=== PATIENT | female | born 1960 | race American Indian/Alaskan Native ===

== ENCOUNTER 2018-02-01 06:19 | Day surgery (SDC) | payer MEDICARE ==
[2018-02-01] MEDS ORDERED: ECOTRIN PO NR (06:54)
[2018-02-01] MEDS ORDERED: NACL 0.9% 500 ML 500 ML IV SCH (07:00)
[2018-02-01 07:34] LABS: Basophils # (Auto) 0.1 K/mm3 (0.0-0.1); Basophils % (Auto) 0.5 % (0.0-1.8); Hematocrit 39.9 % (30.3-42.9); Hemoglobin 13.8 gm/dl (10.1-14.3); Lymphocytes # (Auto) 0.9 K/mm3 (1.2-5.4); Lymphocytes % (Auto) 8.5 % (13.4-35.0); Mean Corpuscular HGB Conc 35 % (30-34); Mean Corpuscular Hemoglobin 33 pg (28-32); Mean Corpuscular Volume 94 fl (79-97); Monocytes # (Auto) 0.2 K/mm3 (0.0-0.8); Monocytes % (Auto) 2.3 % (0.0-7.3); Platelet Count 351 K/mm3 (140-440); Red Blood Count 4.23 M/mm3 (3.65-5.03); Red Cell Distribution Width 14.8 % (13.2-15.2)
[2018-02-01 07:43] LABS: INR 0.9 (0.87-1.13)
[2018-02-01 07:45] LABS: BUN/Creatinine Ratio 24; Blood Urea Nitrogen 17 mg/dL (7-17); Calcium 9.8 mg/dL (8.4-10.2); Hemolysis Index 67
[2018-02-01] MEDS ORDERED: HEPARIN/NS 5000 UNIT/500ML(CATH LAB) 1,000 ML IR ONE (08:17)
[2018-02-01] MEDS ORDERED: CALAN ONE (08:17)
[2018-02-01] MEDS ORDERED: HEPARIN 10,000 UNITS/10 ML ONE (08:17)
[2018-02-01] MEDS ORDERED: NITROGLYCERIN SYRINGE 3 ML ONE (08:18)
[2018-02-01] MEDS: VERSED ONE ×2 (09:51→09:52)
[2018-02-01] MEDS: SUBLIMAZE ONE ×2 (09:51→09:52)
[2018-02-01] MEDS: XYLOCAINE 2% INFILTRATI ONE ×2 (09:51→09:52)
--- NOTE | 2018-02-01 10:13 | Short Stay Summary ---
Short Stay Documentation Date of service: 02/01/18 - Allergies and Medications Current Medications: Allergies codeine Allergy (Verified 11/21/14 14:09) Hives Iodinated Contrast- Oral and IV Dye [Iodinated Contrast Media - IV Dye] Allergy (Verified 11/21/14 14:09) Hives shellfish derived Allergy (Verified 02/01/18 06:54) Hives Home Medications Medication Instructions Recorded Confirmed Last Taken Type Aspirin [Aspirin BABY CHEW TAB] 81 mg PO QDAY 06/04/15 02/01/18 01/31/18 History AtorvaSTATin [Lipitor] 40 mg PO DAILY 06/04/15 02/01/18 01/31/18 History Gabapentin [Neurontin] 300 mg PO Q8HR 06/04/15 02/01/18 01/31/18 History Oxycodone HCl/Acetaminophen 1 each PO Q6HR PRN 06/04/15 02/01/18 06/02/15 History [Percocet 10/325 mg] Albuterol Sulfate [Ventolin HFA] 2 puff IH Q6H PRN 02/01/18 02/01/18 Unknown History Bisacodyl [Bisac-Evac] 10 mg RC PRN 02/01/18 02/01/18 Unknown History Gabapentin [Neurontin] 300 mg PO Q8HR 02/01/18 02/01/18 01/31/18 History Lactulose 10 gm PO PRN PRN 02/01/18 02/01/18 2 Days Ago History ~01/30/18 Metaxalone [Skelaxin] 400 mg PO BID 02/01/18 02/01/18 01/31/18 History Metoprolol [Lopressor] 25 mg PO DAILY 02/01/18 02/01/18 01/31/18 History Trelegy 1 puff IH DAILY 02/01/18 01/31/18 History Active Medications Sodium Chloride (Nacl 0.9% 500 Ml) 500 mls @ 50 mls/hr IV DIRECT ROSIE Stop: 02/01/18 16:59 Last Admin: 02/01/18 07:18 Dose: 50 mls/hr - Brief post op/procedure progress note Date of procedure: 02/01/18 Pre-op diagnosis: chest pain Post-op diagnosis: same Procedure: see report Anesthesia: local Estimated blood loss: none Pathology: none - Disposition Condition at discharge: Good Disposition: DC-01 TO HOME OR SELFCARE - Discharge Diagnoses (1) Chest pain Status: Chronic Qualifiers: Chest pain type: other chest pain Qualified Code(s): R07.89 - Other chest pain; R07.8 - Other chest pain (2) Hypertension Status: Chronic Qualifiers: Hypertension type: essential hypertension Qualified Code(s): I10 - Essential (primary) hypertension (3) Tobacco abuse Status: Chronic Short Stay Discharge Plan Activity: advance as tolerated Diet: low fat, low cholesterol, low salt Wound: keep clean and dry Follow up with: KAY SANCHEZ MD [Primary Care Provider] - 7 Days
--- NOTE | 2018-02-01 12:39 | Cardiac Catherization Report ---
LEFT HEART CATHETERIZATION REQUESTING PHYSICIAN: Dr. Pierre. CLINICAL INFORMATION: This is a 58-year-old -[place] female with hypertension, cholesterol, smoker, presents with recurrent chest pain with a fixed apical defect. She is here for left heart catheterization. The patient was done in moderate sedation 1 mg Versed, 50 mcg of fentanyl. Start time was 9:49 a.m. Finished at 10:04 a.m., which is 50 minutes of supervised moderate sedation. Procedure was done via the right radial artery, sterile technique, local anesthesia, 6-[place] radial sheath inserted. PROCEDURE FINDINGS: Left system engaged with a JL3.5 catheter. Left main is large and patent, bifurcates to large LAD that is patent from proximally and distally. Diagonal 1 and diagonal 2 are small caliber vessels that are patent. Circumflex and AV groove are medium caliber vessel that are patent proximally and then goes into a large OM1 with upper and lower branches are patent. AV groove circ is a small caliber vessel. RCA engaged with JR4 catheter, is a large dominant vessel, it is patent from proximally and distally. PDA and PLV are medium to small caliber vessels that are patent. LV gram done in BRAZILIAN and CAMACHO view shows EF of 55% with LVEDP of 50 mmHg. LV is ____, aortic is 140/75. No gradient across the aortic valve on pullback. A 5-[place] catheters was taken over a guidewire. A 6-[place] radial sheath was discontinued. Radial dressing applied. No hematoma, no bleeding. SUMMARY: Patent coronaries, mild luminal irregularities in RCA, LAD patent, circ patent, large OM1 patent and normal left ventricular function. Continue risk factor modification. Discussed in detail with the patient. JOB# [id number] LIAT/GUS
[2018-02-01 14:14] VITALS: BP 126/68
== END 2018-02-01 14:00 | disposition home or self-care (01) ==
LOC: CATHLABREC 06:19
PROVIDERS: ATTEND Internal Medicine
DX: I25.10 Atherosclerotic heart disease of native coronary artery without angina pectoris (principal); I10 Essential (primary) hypertension; E78.00 Pure hypercholesterolemia, unspecified; F17.200 Nicotine dependence, unspecified, uncomplicated; Z79.82 Long term (current) use of aspirin; Z79.899 Other long term (current) drug therapy; Z91.041 Radiographic dye allergy status; Z88.5 Allergy status to narcotic agent; Z91.013 Allergy to seafood
CPT/HCPCS: 36415; 80048; 85025; 85610; 85730; 93005; 93010; 93458; 99156; C1894; J1644; J2250; J3010; J7040; Q9967